=== PATIENT | female | born 1965 | race Caucasian/White ===

== ENCOUNTER 2022-05-17 19:24 | Emergency (ER) | payer MEDICARE ==
[2022-05-17] MEDS ORDERED: Sodium Chloride 0.9% 500 ML 500 ML IV ONE ×2 (20:40→20:55)
--- NOTE | 2022-05-17 21:16 | ERPHSYRPT ---
- History of Present Illness Time Seen by Provider: 05/17/22 20:40 Source: patient Exam Limitations: no limitations Patient Subjective Stated Complaint: pt states "My right foot has been swelling since this weekend. I was seen at today and they wanted me to get an ultra sound." Triage Nursing Assessment: Pt ambualtory to bed by self, pt alert and oriented x3, pt c/o R ankle and foot swelling since this weekend, pt was seen at today and had blood work done and has elevated D dimer, pt has +3 pitting edema on R foot, pedal pulses +2 bilaterally Physician History: This is a 56-year-old white female who has some chest pain as well as swelling in her right lower extremity. The symptoms began over this weekend prior to today. Patient was seen at [facility] and a series of labs were performed which showed an elevated D-dimer. Given the fact she has some chest pain and right lower extremity leg swelling with an elevated D-dimer, patient was sent by [facility] to have an ultrasound performed of right lower extremity and a CAT scan of the chest with contrast. Patient's labs shows a normal GFR. Timing/Duration: day(s) (2 to 3 days) Severity: mild Associated Symptoms: chest pain, No shortness of breath (Mild), No cough Allergies/Adverse Reactions: Opioids - Morphine Analogues Allergy (Mild, Verified 05/17/22 20:36) Hx Tetanus, Diphtheria Vaccination/Date Given: Yes Hx Influenza Vaccination/Date Given: No Hx Pneumococcal Vaccination/Date Given: No Immunizations Up to Date: Yes Travel Risk - International Travel Have you traveled outside of the country in past 3 weeks: No - Coronavirus Screening Are you exhibiting any of the following symptoms?: No Close contact with a COVID-19 positive Pt in past 14-21 Days: No - Vaccine Status Have you recieved a Covid-19 vaccination: Yes [employer]: [email or web address] - Vaccination Dates Date of 2cond Vaccination (if applicable): 2019 - Review of Systems Constitutional: No Symptoms Eyes: No Symptoms Ears, Nose, & Throat: No Symptoms Respiratory: No Symptoms Cardiac: Chest Pain Abdominal/Gastrointestinal: No Symptoms Genitourinary Symptoms: No Symptoms Musculoskeletal: Other (Swelling right lower extremity) Skin: No Symptoms Neurological: No Symptoms Psychological: No Symptoms Endocrine: No Symptoms Hematologic/Lymphatic: No Symptoms Immunological/Allergic: No Symptoms All Other Systems: Reviewed and Negative - Past Medical History Pertinent Past Medical History: Yes Neurological History: No Pertinent History ENT History: Cataracts Respiratory History: COPD, Emphysema GI Medical History: Diverticulitis, GERD, Polyps History: No Pertinent History Psycho-Social History: Anxiety, Depression Female Reproductive Disorders: No Pertinent History Other Medical History: bradycardia, hypotension - Past Surgical History Past Surgical History: Yes Neuro Surgical History: No Pertinent History Cardiac: No Pertinent History Respiratory: No Pertinent History Gastrointestinal: Appendectomy Genitourinary: No Pertinent History Musculoskeletal: No Pertinent History Female Surgical History: Tubal Ligation Other Surgical History: R side mass removed from lung - Social History Smoking Status: Former smoker Exposure to second hand smoke: No Drug Use: none Patient Lives Alone: Yes - Nursing Vital Signs Nursing Vital Signs: Initial Vital Signs Temperature 97.6 F 05/17/22 20:38 Pulse Rate 60 05/17/22 20:38 Respiratory Rate 18 05/17/22 20:38 Blood Pressure 137/65 05/17/22 20:38 O2 Sat by Pulse Oximetry 96 05/17/22 20:38 Pain Scale Pain Intensity 2 - Physical Exam General Appearance: no apparent distress, alert, anxiety, thin Eye Exam: PERRL/EOMI, eyes nml inspection Ears, Nose, Throat Exam: normal ENT inspection, moist mucous membranes Neck Exam: normal inspection, non-tender, supple, full range of motion Respiratory Exam: normal breath sounds, chest tenderness (Mild right side), lungs clear, airway intact, No respiratory distress Cardiovascular Exam: regular rate/rhythm, normal heart sounds, normal peripheral pulses Gastrointestinal/Abdomen Exam: soft, normal bowel sounds, No tenderness Pelvic Exam: not done Rectal Exam: not done Back Exam: normal inspection, normal range of motion, No CVA tenderness, No vertebral tenderness Extremity Exam: pedal edema (Right lower extremity), swelling (Right lower extremity), tenderness (Right lower extremity below the knee) Neurologic Exam: alert, oriented x 3, cooperative, lead warehouse associate II-XII nml as tested, normal mood/affect, nml cerebellar function, nml station & gait, sensation nml Skin Exam: normal color, warm, dry Lymphatic Exam: No adenopathy SpO2 Interpretation: normal SpO2: 96 O2 Delivery: Room Air - Course Nursing assessment & vital signs reviewed: Yes Ordered Tests: Active Orders 24 hr Category Date Time Status IV Insertion STAT Care 05/17/22 21:42 Active CHEST WITH CONTRAST [CT] Stat Exams 05/17/22 20:41 Taken VENOUS UNILAT/LIMITED EXTREMIT [US] Stat Exams 05/17/22 21:42 Taken Medication Summary Discontinued Medications Generic Name Dose Route Start Last Admin Trade Name Ko PRN Reason Stop Dose Admin Sodium Chloride 500 mls @ 500 mls/hr 05/17/22 20:40 05/17/22 20:56 Sodium Chloride 0.9% 500 Ml IV 05/17/22 21:39 500 mls/hr .Q1H ONE Administration Sodium Chloride Confirm 05/17/22 20:55 Sodium Chloride 0.9% 500 Ml Administered 05/17/22 20:56 Dose 500 mls @ ud IV .STK-MED ONE - Progress Progress: unchanged, re-examined Progress Note: 05/17/22 21:55 CTA of the chest shows no pulmonary emboli. There is no evidence of any acute cardiopulmonary process. Venous Doppler right lower extremity shows no evidence of any deep venous thrombosis. Counseled pt/family regarding: lab results, diagnosis, need for follow-up, rad results - Departure Departure Disposition: Home Clinical Impression: Leg swelling Condition: Stable Critical Care Time: No Referrals: DESTINY BOSTON DO [Primary Care Provider] - Follow up/PCP as directed Additional Instructions: Follow-up with your primary care physician for further evaluation and management of your leg swelling.
[2022-05-17 22:04] VITALS: BP 118/74; PULSE 57; O2SAT 100
--- NOTE | 2022-05-17 22:27 | XRAY ---
Exam: Duplex Doppler Ultrasound of the right lower extremity. Comparison: [None.] Indication: 56-year-old female with right lower extremity swelling; elevated d-dimer. Findings: The examination of the right lower extremity was carried out in the usual manner imaging customer service representative teacher sections of the common femoral vein through the popliteal vein. The posterior tibial veins were also evaluated. Normal color flow was seen throughout. Normal spontaneous and phasic flow was seen at all customer service representative teacher sections. There was normal transducer compression and doppler signal augmentation at all levels. The greater saphenous vein demonstrated normal color blood flow, transducer compression, and Doppler signal augmentation within the proximal right thigh. Impression: 1. No evidence of deep venous thrombosis within the right lower extremity.
--- NOTE | 2022-05-18 10:19 | XRAY ---
Exam: CT Chest PE protocol DLP: 211.77 mGy-cm Comparison: AP upright portable chest film from 05/17/2022. Indication: 56-year-old female with elevated d-dimer; chest pain; congestion; right lower leg swelling; known right breast mass. The patient also gives a history of a mass removed from her right lung in the past. Technique: Post IV contrast axial images were obtained through the chest using the PE protocol. Automated injection using 80 cc of Isovue 370 contrast was utilized. Reconstructed coronal and sagittal images were created and reviewed. Findings: CT of the chest is performed with IV contrast utilizing the pulmonary embolism protocol. No CT evidence for pulmonary embolism or thoracic aortic dissection is seen. The heart size is normal without pericardial effusion. The gilson and mediastinal structures reveal no abnormal lymphadenopathy. Granulomatous calcifications are seen within the left hilum, as well as a few scattered left lung calcified granulomas consistent with old healed granulomatous disease. Fine surgical suture material is seen within the mid medial aspect of the right upper lobe, apparently from prior right lung surgery. Incidentally, on axial image #235, there is a 1.8 cm x 1.1 cm oval-shaped, slightly enhancing mass within the superior right breast. It displays mildly irregular margins. Apparently this represents the known right breast mass. Correlate clinically as to whether further investigation is needed at this time. The lungs are clear of focal infiltrate or indeterminate pulmonary nodule. The lungs are hyperinflated and demonstrate centrilobular emphysematous changes within the upper lung finnegan. I also note mild linear scarring/fibrosis within the right lung apex, anterior medial left midlung field, and posterior medial left lung base. I believe there is also minimal pleural-parenchymal scarring within the right lateral lung sulcus. A few scattered bullae are seen within the upper lung finnegan as well. The visualized upper abdomen appears unremarkable. The adrenal glands are normal. The skeleton reveals no acute fracture or aggressive bone lesion. Mild thoracic vertebral endplate spurring is seen. Impression: 1. No CT evidence for acute pulmonary embolism or thoracic aortic dissection. 2. Emphysematous chest with scattered linear fibrosis/scarring. 3. Some old healed granulomatous changes are seen within the left lung, as discussed above. 4. Mildly enhancing superior right breast mass, as discussed above. Apparently, this is already known. Correlate clinically as to whether further investigation is necessary at this time. 5. Evidence of prior surgery within the medial aspect of the right upper lobe.
== END 2022-05-17 22:24 | disposition home or self-care (01) ==
LOC: ED 19:24
DX: R60.0 Localized edema (principal); R07.9 Chest pain, unspecified; R79.1 Abnormal coagulation profile; J43.9 Emphysema, unspecified
CPT/HCPCS: 36000; 36415; 71045; 71260; 80053; 85025; 85379; 93971; 96360; 99284